=== PATIENT | male | born 1950 | race Caucasian/White ===

== ENCOUNTER → 2018-01-27 | Outpatient (CLI) | payer MEDICARE, OTHER ==
[~2018-01-27] MED LIST: PERFLUTREN PROTEIN-A MICROSPHR 0.22 MG/ML 3 ML VIAL. IV ONE
--- NOTE | 2018-01-27 15:20 | PCVCIMAG ---
APPROVED REPORT Study performed: 01/27/2018 10:25:49 EXAM: Comprehensive 2D, Doppler, and color-flow Echocardiogram Patient Location: Echo lab Status: routine BSA: 2.57 HR: 46 bpmBP: 140/84 mmHg Rhythm: NSR Other Information Study Quality: Technically Limited Indications Aortic Valve Disease Hypertension/HDD Hyperlipidemia. AVR Echo Enhancing Agent Indication: Endocardial border delineation Agent(s) / Amount(s) Used: Optison cc Comments: This is a very technically limited echocardiogram. Aortic Valve is very poorly visualized. 2D Dimensions LVEF(%): 31.19 (>50%) IVSd: 13.68 (7-11mm)LVOT Diam: 20.13 (18-24mm) LVDd: 53.98 mm PWd: 13.00 (7-11mm)Ascending Ao: 40.13 (22-36mm) LVDs: 45.96 (25-40mm) Bassett's LVEF: 31.19 % Volumes Left Atrial Volume (Systole) Single Plane 4CH: 70.82 mLSingle Plane 2CH: 48.31 mL LA ESV Index: 24.00 mL/m2 Aortic Valve AoV Peak Reyes.: 2.92 m/s AO Peak Gr.: 34.03 mmHgLVOT Max P.50 mmHg AO Mean Gr.: 18.96 mmHgLVOT Mean P.94 mmHg AO V2 Mean: 2.08 m/sLVOT Max V: 1.17 m/s AO V2 VTI: 69.93 cmLVOT Mean V: 0.80 m/s ARTURO (VTI): 1.32 [id number] V1 VTI: 29.07 cm ARTURO Vmax: 1.28 cm2 SV (LVOT): 92.47 mL Left Ventricle The left ventricle is normal size. There is normal LV segmental wall motion. Mild to moderate concentric left ventricular hypertrophy. Left ventricular systolic function is normal. The left ventricular ejection fraction is within the normal range. LVEF is 55-60%. This study is not technically sufficient to allow evaluation of the LV diastolic function. Right Ventricle The right ventricle is normal size. The right ventricular systolic function is normal. Atria The left atrium size is normal. The right atrium size is normal. Aortic Valve Aortic valve is not well visualized. No aortic regurgitation is present. Aortic Valve area is 1.3cm. Peak gradient is is 34mmhg. Mean gradient is 19mmhg. Mitral Valve The mitral valve is normal in structure. There is no mitral valve regurgitation noted. No evidence of mitral valve stenosis. Tricuspid Valve The tricuspid valve is normal in structure. There is no tricuspid valve regurgitation noted. Pulmonic Valve The pulmonary valve is normal in structure. There is no pulmonic valvular regurgitation. Great Vessels The aortic root is normal in size. IVC is normal in size and collapses with >50% inspiration Pericardium There is no pericardial effusion. <Conclusion> The left ventricle is normal size. LVEF is 55-60%. This study is not technically sufficient to allow evaluation of the LV diastolic function. The right ventricle is normal size. The left atrium size is normal. Aortic valve is not well visualized. Aortic Valve area is 1.3cm. Peak gradient is is 34mmhg. Mean gradient is 19mmhg. There is no mitral valve regurgitation noted. There is no tricuspid valve regurgitation noted. The aortic root is normal in size. There is no pericardial effusion.
== END | disposition home or self-care (01) ==
LOC: PCVCIMAG 14:56
PROVIDERS: ATTEND Internal Medicine Cardiovascular Disease
DX: I10 Essential (primary) hypertension (principal); I35.0 Nonrheumatic aortic (valve) stenosis; I83.10 Varicose veins of unspecified lower extremity with inflammation; F17.210 Nicotine dependence, cigarettes, uncomplicated; Z79.82 Long term (current) use of aspirin; Z95.2 Presence of prosthetic heart valve
CPT/HCPCS: 80061; 93005; C8929; G0463; Q9956

== ENCOUNTER → 2019-03-20 | Outpatient (CLI) | payer OTHER, MEDICARE ==
--- NOTE | 2019-03-20 15:50 | PCVCIMAG ---
APPROVED REPORT Study performed: 03/20/2019 13:41:08 EXAM: Comprehensive 2D, Doppler, and color-flow Echocardiogram Patient Location: Echo lab Status: routine BSA: 2.59 HR: 46 bpmBP: 140/90 mmHg Rhythm: Bradycardia Other Information Study Quality: Technically Difficult Technically limited study due to body habitus. Risk Factors: Cardiac Risk Factors: HTN Indications #25 Biosprosthetic aortic valve replacement, [facility] 2D Dimensions IVSd: 13.32 (7-11mm)LVOT Diam: 25.46 (18-24mm) LVDd: 49.09 mm PWd: 14.38 (7-11mm)Ascending Ao: 40.60 (22-36mm) LVDs: 32.93 (25-40mm) Left Atrium: 48.56 (27-40mm) Aortic Root: 36.88 mm LV Single Plane 4CH: 48.56 % LV Single Plane 2CH: 41.45 % Biplane EF: 44.7 % Volumes Left Atrial Volume (Systole) Single Plane 4CH: 109.56 mLSingle Plane 2CH: 103.09 mL LA ESV Index: 43.00 mL/m2 Aortic Valve AoV Peak Reyes.: 2.24 m/s AO Peak Gr.: 20.15 mmHgLVOT Max P.08 mmHg AO Mean Gr.: 9.71 mmHgLVOT Mean P.61 mmHg AO V2 Mean: 1.46 m/sLVOT Max V: 1.33 m/s AO V2 VTI: 53.59 cmLVOT Mean V: 0.89 m/s ARTURO (VTI): 3.18 [id number] V1 VTI: 33.45 cm ARTURO Vmax: 3.02 cm2 SV (LVOT): 170.25 mL Mitral Valve E/A Ratio: 1.3 MV Decel. Time: 371.01 ms MV E Max Reyes.: 1.01 m/s MV A Reyes.: 0.75 m/s IVRT: 114.19 ms Pulmonary Valve PV Peak Reyes.: 0.83 m/sPV Peak Gr.: 2.73 mmHg Pulmonary Vein P Vein S: 0.34 m/sP Vein A: 0.33 m/s P Vein D: 0.56 m/sP Vein A Dur.: 152.2 msec P Vein S/D Ratio: 0.61 Tricuspid Valve TR Peak Reyes.: 2.68 m/s TR Peak Gr.: 28.76 mmHg Left Ventricle The left ventricle is normal size. There is normal LV segmental wall motion. Mild concentric left ventricular hypertrophy. Left ventricular systolic function is normal. The left ventricular ejection fraction is within the normal range. LVEF is 55%. Grade II - pseudonormal filling dynamics. Right Ventricle The right ventricle is normal size. The right ventricular systolic function is normal. Atria Left atrium is moderately dilated. The right atrium size is mildly dilated. Aortic Valve Normally functioning #[address] [facility] bioprosthetic aortic valve. No aortic regurgitation is present. There is no evidence of aortic valve stenosis. Calculated aortic valve area is 3 cm2 with maximum pressure gradient of 20 mmHg and mean pressure gradient of 10 mmHg. Mitral Valve The mitral valve is normal in structure. Mild mitral regurgitation. No evidence of mitral valve stenosis. Tricuspid Valve The tricuspid valve is normal in structure. Mild tricuspid regurgitation with PAP of 36 mmHg. Pulmonic Valve The pulmonary valve is normal in structure. There is no pulmonic valvular regurgitation. Great Vessels The aortic root is normal in size. The ascending aorta is dilated to 4.1 cm. IVC is normal in size and collapses >50% with inspiration. Pericardium There is no pericardial effusion. There is no pleural effusion. <Conclusion> The left ventricle is normal size. Mild concentric left ventricular hypertrophy. LVEF is 55%. Grade II - pseudonormal filling dynamics. The right ventricle is normal size. Left atrium is moderately dilated. The right atrium size is mildly dilated. Normally functioning #25 [facility] [place] bioprosthetic aortic valve. There is no evidence of aortic valve stenosis. Calculated aortic valve area is 3 cm2 with maximum pressure gradient of 20 mmHg and mean pressure gradient of 10 mmHg. Mild mitral regurgitation. Mild tricuspid regurgitation with PAP of 36 mmHg. The aortic root is normal in size. The ascending aorta is dilated to 4.1 cm. There is no pericardial effusion.
== END | disposition home or self-care (01) ==
LOC: PCVCIMAG 13:55
PROVIDERS: ATTEND Internal Medicine Cardiovascular Disease
DX: I08.1 Rheumatic disorders of both mitral and tricuspid valves (principal); I83.10 Varicose veins of unspecified lower extremity with inflammation; E78.00 Pure hypercholesterolemia, unspecified; I13.10 Hypertensive heart and chronic kidney disease without heart failure, with stage 1 through stage 4 chronic kidney disease, or unspecified chronic kidney disease; N18.3 Chronic kidney disease, stage 3 (moderate); Z87.891 Personal history of nicotine dependence; Z88.8 Allergy status to other drugs, medicaments and biological substances; Z95.2 Presence of prosthetic heart valve; Z79.82 Long term (current) use of aspirin; Z79.899 Other long term (current) drug therapy
CPT/HCPCS: 93306